=== PATIENT | male | born 1960 | race Caucasian/White ===

== ENCOUNTER 2019-08-01 18:21 | Emergency (ER) | payer OTHER ==
[~2019-08-01] VITALS: Ht 172.7 cm; Wt 77.1 kg
[2019-08-01] MEDS ORDERED: FLOMAX0.4 MG PO (18:36)
[2019-08-01] MEDS ORDERED: CIPRO500 MG PO (18:36)
[2019-08-01] MEDS ORDERED: CEPHALEXIN500 MG PO (22:15)
[2019-08-01] MEDS ORDERED: OMEPRAZOLE20 MG PO (22:15)
--- NOTE | 2019-08-02 16:05 | EKG ---
[facility] [address] [facility] [place], [place] [address] Signed Sinus rhythm with marked sinus arrhythmia Otherwise normal ECG No previous ECGs available Confirmed by KATTY BARROS MD ([id number]) on 08/02/2019 4:04:54 PM Electronically Signed By: KATTY BARROS MD 08/02/19 1605 PATIENT NAME: PILOJANINAAIDEE MARCELO Electrocardiogram DATE OF : 64 PHYSICIAN: KATTY BARROS MD REPORT #: [id number] REPORT IS CONFIDENTIAL AND NOT TO BE RELEASED WITHOUT AUTHORIZATION
== END 2019-08-01 22:30 | disposition home or self-care (01) ==
LOC: ED 18:21
DX: N39.0 Urinary tract infection, site not specified (principal); F17.200 Nicotine dependence, unspecified, uncomplicated; Z88.0 Allergy status to penicillin; Z79.899 Other long term (current) drug therapy
CPT/HCPCS: 71046; 74177; 80053; 81001; 83690; 83735; 84484; 85025; 85379; 93005; 93010; 96361; 99284-25; 99406; J0696; J7030; Q9967